=== PATIENT | female | born 1990 | race Caucasian/White ===

== ENCOUNTER 2018-03-25 16:51 | Emergency (ER) | payer OTHER ==
[2018-03-25 17:00] VITALS: O2SAT 98
[2018-03-25] MEDS ORDERED: TYLENOL EXTRA STRENGTH 500 MG PO STA (17:04)
[2018-03-25] MEDS ORDERED: TYLENOL EXTRA STRENGTH 500 MG ONE (17:08)
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
[2018-03-25 17:54] VITALS: BP 145/99; PULSE 16
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
== END 2018-03-25 20:35 | disposition left against medical advice (07) ==
LOC: ED 16:51
DX: R42 Dizziness and giddiness (principal); R51 Headache; S00.83XA Contusion of other part of head, initial encounter; R68.84 Jaw pain; M25.561 Pain in right knee; S80.211A Abrasion, right knee, initial encounter; V29.9XXA Motorcycle rider (driver) (passenger) injured in unspecified traffic accident, initial encounter
CPT/HCPCS: 70450; 70486; 72125; 73562; 99284; A9270-GY

== ENCOUNTER 2021-04-03 12:42 | Emergency (ER) | payer OTHER ==
--- NOTE | 2021-04-03 12:45 | ERPHSYRPT ---
- History of Present Illness Time Seen by Provider: 04/03/21 12:45 Source: patient Exam Limitations: no limitations Physician History: This is a 31-year-old white female patient who tested positive for COVID-19 infection on an [id number] test. Patient states she has had symptoms for approximately 1 week. Her test came back positive approximately 3 to 4 days ago and she has already been quarantine herself. Her concern was that she still has a mild cough and has occasional spiking fevers. The fevers are controlled with Tylenol and ibuprofen. Patient denies nausea vomiting or diarrhea. She has no abdominal pain. She denies chest pain. Severity: mild Associated Symptoms: cough, fever, No nausea, No vomiting, No abdominal pain, No shortness of breath, No chest pain Allergies/Adverse Reactions: No Known Drug Allergies Allergy (Verified 03/25/18 17:06) Home Medications: Phentermine HCl 15 mg DAILY 03/25/18 [History] Hx Tetanus, Diphtheria Vaccination/Date Given: No Hx Influenza Vaccination/Date Given: No Hx Pneumococcal Vaccination/Date Given: No Travel Risk - International Travel Have you traveled outside of the country in past 3 weeks: No - Coronavirus Screening Are you exhibiting any of the following symptoms?: Yes Symptoms: Fever, Cough: New Onset, Loss of Taste or Smell Close contact with a COVID-19 positive Pt in past 14-21 Days: Yes - Vaccine Status Have you recieved a Covid-19 vaccination: No - Review of Systems Constitutional: Fever Eyes: No Symptoms Ears, Nose, & Throat: No Symptoms Respiratory: Cough Cardiac: No Symptoms Abdominal/Gastrointestinal: No Symptoms Genitourinary Symptoms: No Symptoms Musculoskeletal: No Symptoms Skin: No Symptoms Neurological: No Symptoms Psychological: No Symptoms Endocrine: No Symptoms Hematologic/Lymphatic: No Symptoms Immunological/Allergic: No Symptoms All Other Systems: Reviewed and Negative - Past Medical History Pertinent Past Medical History: No Neurological History: No Pertinent History ENT History: No Pertinent History Cardiac History: Hypertension (does not take prescribed meds,because she forgets them all time) Respiratory History: No Pertinent History Endocrine Medical History: No Pertinent History Musculoskeletal History: No Pertinent History GI Medical History: No Pertinent History History: No Pertinent History, Renal Disease Female Reproductive Disorders: No Pertinent History - Past Surgical History Past Surgical History: Yes Female Surgical History: Section - Social History Smoking Status: Never smoker Exposure to second hand smoke: Yes Drug Use: none Patient Lives Alone: No - Nursing Vital Signs Nursing Vital Signs: Initial Vital Signs Temperature 97.2 F 04/03/21 13:05 Pulse Rate 105 H 04/03/21 13:05 Respiratory Rate 20 04/03/21 13:05 Blood Pressure 130/80 04/03/21 13:05 O2 Sat by Pulse Oximetry 97 04/03/21 13:05 Pain Scale Pain Intensity 0 - Physical Exam General Appearance: no apparent distress, alert, anxiety Eye Exam: PERRL/EOMI, eyes nml inspection Ears, Nose, Throat Exam: normal ENT inspection, moist mucous membranes Neck Exam: normal inspection, non-tender, supple, full range of motion Respiratory Exam: normal breath sounds, lungs clear, airway intact, No chest tenderness, No respiratory distress Cardiovascular Exam: regular rate/rhythm, normal heart sounds, normal peripheral pulses Gastrointestinal/Abdomen Exam: soft, normal bowel sounds, No tenderness Pelvic Exam: not done Rectal Exam: not done Back Exam: normal inspection, normal range of motion, No CVA tenderness, No vertebral tenderness Extremity Exam: normal inspection, normal range of motion, pelvis stable Neurologic Exam: alert, oriented x 3, cooperative, 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, normal mood/affect, nml cerebellar function, nml station & gait, sensation nml Skin Exam: normal color, warm, dry Lymphatic Exam: No adenopathy SpO2 Interpretation: normal O2 Delivery: Room Air - Course Nursing assessment & vital signs reviewed: Yes Ordered Tests: Active Orders 24 hr Category Date Time Status CHEST 1 VIEW (PORTABLE) Stat Exams 04/03/21 13:08 Taken INFLUENZA A+B MOSES Stat Lab 04/03/21 13:25 Completed Lab/Rad Data: Laboratory Results 04/03/21 04/03/21 Range/Units 13:25 13:25 Influenza Type A Ag NEGATIVE (NEGATIVE) Influenza Type B Ag NEGATIVE (NEGATIVE) Group A Strep Antibody NOT DETECTED (NEGATIVE) - Progress Progress: unchanged Progress Note: 04/03/21 14:13 Chest x-ray shows no acute cardiopulmonary process Counseled pt/family regarding: lab results, diagnosis, need for follow-up, rad results - Departure Departure Disposition: Home Clinical Impression: COVID-19 virus infection, Fever Condition: Stable Critical Care Time: No Referrals: TONIA ROBERT [Primary Care Provider] - Additional Instructions: Drink plenty of fluids. Continue using Tylenol and ibuprofen for pain relief and fever control. Quarantine yourself until the results of your COVID-19 test returns.
[2021-04-03 13:17] VITALS: O2SAT 97
[2021-04-03 14:08] LABS: INFLUENZA A NEGATIVE (NEGATIVE); INFLUENZA B NEGATIVE (NEGATIVE)
[2021-04-03 14:28] VITALS: BP 101/51; PULSE 83
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
== END 2021-04-03 14:28 | disposition home or self-care (01) ==
LOC: ED 12:42
DX: U07.1 COVID-19 (principal); B34.2 Coronavirus infection, unspecified; R50.9 Fever, unspecified
CPT/HCPCS: 71045; 87400; 87651; 99284; U0003